=== PATIENT | male | born 1955 | race Caucasian/White ===

== ENCOUNTER 2016-11-06 08:15 | Observation (INO) | payer BC ==
--- NOTE | ~2016-11-06 | HP ---
History And Physical [place] [address] [facility] [place]. [address] NAME: CATHERINE GRAY JR : 51 STATUS : ADM IN PAT#: [id number] AGE: 61 ADM/REG DATE : 11/06/16 MR#: [id number] REPORT SERV DATE: 11/06/16 DICTATED BY: CRYSTAL REICH III DATE: 11/06/16 REPORT STATUS : Draft TRANSCRIBED BY: MODDarling DATE: 11/06/16 DATE OF ADMISSION: 11/06/2016 HISTORY OF PRESENT ILLNESS: Mr. Catherine Gray Jr., is a 61-year-old white male from [place], [place] transferred from [facility] for evaluation of left shoulder pain and an abnormal myocardial perfusion scan. The patient had been in his usual state of health until 2000. At that time, following the of his brother, the patient underwent cardiac catheterization. According to the patient, selective coronary angiography demonstrated insignificant disease. The patient did well until 2004. At that time, the patient presented with paroxysmal supraventricular tachycardia. The patient was treated with diltiazem CD. The patient did well until 1 year prior to this admission. At that time, the patient noted the onset of intermittent left shoulder pain. The patient did well until approximately 1 hour prior to admission to [facility] on 11/04. At that time, the patient had the onset of dull left scapular pain radiating to the left upper extremity (to the level of the wrist). The patient's pain was continuous in character with intermittent exacerbations. The patient denied any associated dyspnea, diaphoresis, nausea, or vomiting. The patient's pain was precipitated and exacerbated by certain movements. The patient stated that his pain was precipitated by ambulation. The patient denied relation to emotional upset, oral intake, and respiration. The patient denied relieving factors. The patient denied trying sublingual nitroglycerin and antacids. The patient has no history of migraine headaches or symptoms suggestive of Raynaud's phenomenon. The patient has noted left shoulder pain at rest. The patient denied being woken from sleep by chest pain. On 11/05, the patient underwent a 2D and Doppler echocardiogram. That study demonstrated grade I left ventricular diastolic dysfunction and aortic sclerosis. Left ventricular systolic function was normal. The estimated global left ventricular ejection fraction was 65%. On 11/05/2016, the patient underwent an intravenous regadenoson Technetium-99m sestamibi scintigram. Myocardial perfusion imaging demonstrated homogeneous distribution of the radioisotope. There was transient ischemic dilation, with a stress to rest ratio of 1.27. The calculated global left ventricular ejection fraction was 74%. The patient was subsequently transferred to [facility] for cardiac catheterization to define coronary anatomy, left ventricular function. The patient complained of occasional paroxysmal nocturnal dyspnea and dependent bilateral pedal edema. The patient has been told that he has a cardiac murmur. The patient denied dyspnea on exertion, orthopnea, trepopnea, platypnea, sacral edema, pedal edema, hip claudication, and lower extremity claudication. The patient has no history of rheumatic fever. The patient's documented coronary artery disease risk factors include family history, obesity, and hyperlipoproteinemia. PAST MEDICAL HISTORY: 1. Obesity. 2. Hyperlipoproteinemia. 3. Esophageal spasm. 4. Gastroesophageal reflux. 5. Obstructive sleep apnea. 6. Fatty liver. History And Physical [address] [address] NAME: KOREYCATHERINEDARA JAMES JR : 51 STATUS : ADM IN PAT#: [id number] AGE: 61 ADM/REG DATE : 11/06/16 MR#: [id number] REPORT SERV DATE: 11/06/16 DICTATED BY: CRYSTAL REICH III DATE: 11/06/16 REPORT STATUS : Draft TRANSCRIBED BY: CIPRIANO DATE: 11/06/16 7. Nephrolithiasis. OPERATIVE PROCEDURES: 1. Status post left inguinal herniorrhaphy. 2. Status post full mouth extraction. ALLERGIES: SHELLFISH. MEDICATIONS: 1. Alprazolam 0.25 mg p.o. daily and 0.5 mg p.o. at bedtime. 2. Aspirin 81 mg p.o. daily. 3. B complex with vitamin C 1 p.o. daily. 4. Coenzyme Q10, 200 mg p.o. daily. 5. Hydrochlorothiazide 25 mg p.o. daily. 6. Diltiazem CD 240 mg p.o. daily. 7. Alpha-lipoic acid 300 mg p.o. daily. 8. Multivitamin with minerals 1 p.o. daily. 9. Fleetwood-3 fatty acid 1200 mg p.o. daily. 10.Rosuvastatin 5 mg p.o. at bedtime. 11.Probiotic 1 p.o. b.i.d. 12.Acetyl L-Carnitine 250 mg p.o. daily. 13.Lortab 5/325 mg 1-2 tablets p.o. q.4-6 hours, p.r.n. pain. FAMILY HISTORY: Positive for myocardial infarction, stroke, diabetes mellitus, arthritis, and depression. Negative for hypertension, seizures, cancer, kidney disease, liver disease, and anemia. SOCIAL HISTORY: The patient discontinued alcohol use approximately 20 years prior to this admission. The patient discontinued cigarette smoking approximately 8 years prior to this admission. The patient denied any other forms of tobacco use. PHYSICAL EXAMINATION: GENERAL: Demonstrated an alert, obese, older white male, in no acute distress. VITAL SIGNS: Demonstrated temperature of 96.7 orally, respiratory rate of 16 breaths per minute, and blood pressure of 141/86 mmHg with a heart rate of 77 beats per minute. SKIN: Warm and dry. NECK: Supple and nontender. There was decreased range of motion. There was no appreciable lymphadenopathy or thyromegaly. There was no jugular venous distention at 90 degrees. CHEST: Examination of the chest demonstrated that the patient's left shoulder and left upper extremity pain was precipitated by palpation of the left scapula. The chest was clear to auscultation. There were no crackles, rhonchi, wheezes, or pleural rubs. There was symmetrical expansion of the chest. There was no use of accessory muscles for respiration. CARDIAC: Cardiac examination demonstrated a nonpalpable apical impulse. There was a regular rhythm and rate without murmur, rub, gallop, or mid systolic click. There were no thrills or heaves. There was no hepatojugular reflux. ABDOMEN: Examination of the abdomen demonstrated that it was obese, soft, and protuberant. There was no appreciable hepatosplenomegaly or masses. Bowel sounds were intact. There History And Physical [address] [address] NAME: EDUAR GRAYDARA JAMES JR : 51 STATUS : ADM IN [facility]#: [id number] AGE: 61 ADM/REG DATE : 11/06/16 MR#: [id number] REPORT SERV DATE: 11/06/16 DICTATED BY: CRYSTAL REICH III DATE: 11/06/16 REPORT STATUS : Draft TRANSCRIBED BY: CIPRIANO DATE: 11/06/16 were no abdominal or femoral bruits. BACK: Examination of the extremities demonstrate they were symmetrical. There was full range of motion without cyanosis, clubbing, or edema. Pulses were 2+ and equal at the radial, femoral, and dorsalis pedis arteries. The right posterior tibial pulse was 1+. The left posterior tibial pulse was 2+. ASSESSMENT: Mr. Catherine Gray , is a 61-year-old white male with three other risk factors for coronary atherosclerotic disease (i.e., family history, obesity, hyperlipoproteinemia), angiographically insignificant coronary artery disease (2000), and a history of paroxysmal supraventricular tachycardia since 2004; who presented with noncardiac left shoulder pain and transient ischemic dilation on an exercise Technetium-99m sestamibi scintigram (11/05/2016). The patient's left shoulder and upper extremity pain is clearly noncardiac in origin. The patient's physical examination suggested a musculoskeletal etiology involving the suprascapular nerve. I have consulted Orthopedic Surgery. The transient ischemic dilation in the absence of diabetes mellitus or known coronary artery disease is generally not indicative of multi-vessel coronary artery disease. However, I note a family history of premature coronary artery disease and multiple other risk factors. Therefore, I plan cardiac catheterization to define coronary anatomy, and left ventricular function, followed by consideration of revascularization. Options, potential risks, and benefits of the procedure were discussed with the patient. The patient accepted these risks and wished to proceed. /CIPRIANO Crystal Reich III, M.D., [place], [facility] / [id number] CC: Crystal Reich III, M.D., [place], [facility] [place] M.D.
--- NOTE | ~2016-11-06 | CN ---
Consultation Report [facility] [address] [place]. [address] NAME: CATHERINE NAIR JR : 51 STATUS : ADM IN PAT#: [id number] AGE: 61 ADM/REG DATE : 11/06/16 MR#: [id number] REPORT SERV DATE: 11/06/16 DICTATED BY: JOSUÉ AMBRIZ DATE: 11/06/16 REPORT STATUS : Draft TRANSCRIBED BY: MODDarling DATE: 11/06/16 DATE OF CONSULTATION: 11/06/2016 CHIEF COMPLAINT: Left shoulder pain. HISTORY OF PRESENT ILLNESS: The patient is a 61-year-old gentleman with left shoulder pain that has been going on for the past couple months, but he said a few days ago it stopped him in his tracks with severe pain. It started in his shoulder blade area, ran down toward his lateral shoulder and forearm. He said has pain with movement. He is having a lot of pain at night. He cannot get comfortable due to the pain in the shoulder. He says he has reported weakness in the shoulder as well. He has not had any previous shoulder pain or problems prior to this couple months. He was admitted to the hospital due to unstable angina and a positive stress test. He said he is afraid that his shoulder pain was coming from his heart, but it appears that this is more musculoskeletal with his location of pain, in description of pain. PAST MEDICAL HISTORY: Hypertension, COPD, reflux, inguinal hernia, possible coronary artery disease. MEDICATIONS: Diltiazem, Crestor, Xanax, aspirin, coenzyme, omega-3, hydrochlorothiazide, multivitamin. ALLERGIES: NO KNOWN DRUG ALLERGIES. SOCIAL HISTORY: He is a past smoker. He is , still working, and they live in [place]. FAMILY HISTORY: Noncontributory. REVIEW OF SYSTEMS: Times 10 negative except for above. PHYSICAL EXAMINATION: GENERAL: Well-developed, well-nourished male, in no acute distress. HEENT: Normocephalic, atraumatic. RESPIRATORY: Nonlabored respirations. Equal chest rise bilaterally. EXTREMITIES: No cyanosis, clubbing, or edema. MUSCULOSKELETAL: He has tenderness to palpation at anterior lateral shoulder at the lateral rotator cuff insertion. He has pain with range of motion. His range of motion of his forward flexion is 160, his external rotation is 50. His passive motion acted as the same. His rotator cuff strength 4/5 strength with supraspinatus testing, 5/5 strength with infraspinatus testing, 5/5 strength to internal rotation. Subscapularis testing is provocative rotator cuff test are positive including the drop arm test. Whipple test is positive. Cross-arm test is positive. C-spine, he has no pain with motion of the C-spine. His Spurling's test is negative. SKIN: No rashes or lesions, right and left upper extremities. Consultation Report [place] [id number] [place]. [address] NAME: CATHERINE NAIR JR : 51 STATUS : ADM IN PAT#: [id number] AGE: 61 ADM/REG DATE : 11/06/16 MR#: [id number] REPORT SERV DATE: 11/06/16 DICTATED BY: JOSUÉ AMBRIZ DATE: 11/06/16 REPORT STATUS : Draft TRANSCRIBED BY: MODDarling DATE: 11/06/16 PSYCH: Appropriate mood and affect. NEURO: Neurovascularly intact in left upper extremity. Inappropriate mood and alert x3. X-RAYS: No x-rays of the shoulder yet. ASSESSMENT: 1. Likely rotator cuff tendinitis. 2. Left shoulder pain. PLAN: I am going to order x-rays of his left shoulder. It is likely rotator cuff tendinitis which can be worked up as an outpatient. No acute intervention needed while in the hospital. I have given him my card today. Will follow up next week as soon as he is discharged from the hospital for further workup of the shoulder pain which I believe is due to his rotator cuff. DARRYL/CIPRIANO Josué Ambriz MD / [id number] CC: Dieudonne Reich III, M.D., [facility], [facility] [place] [facility]
[2016-11-06] MEDS ORDERED: CARDCD240 PO (09:15)
[2016-11-06] MEDS ORDERED: X5 PO (09:16)
[2016-11-06] MEDS ORDERED: CRESTOR5 MG PO (09:16)
[2016-11-06] MEDS ORDERED: X25 PO (09:17)
[2016-11-06] MEDS ORDERED: HALF81 PO (09:17)
[2016-11-06] MEDS ORDERED: CO Q-10200 MG PO (09:18)
[2016-11-06] MEDS ORDERED: SUPER B COMP PO (09:18)
[2016-11-06] MEDS ORDERED: FISH OIL1200 MG PO (09:18)
[2016-11-06] MEDS ORDERED: PROBIOTIC PO (09:19)
[2016-11-06] MEDS ORDERED: ALPHA LIPOIC300 MG PO (09:20)
[2016-11-06] MEDS ORDERED: HYDROCHLOROT25 MG PO (09:20)
[2016-11-06] MEDS ORDERED: MULTIVIT/MIN PO (09:21)
[2016-11-06] MEDS ORDERED: ACETYL PO (09:22)
[2016-11-06] MEDS ORDERED: [UNRECOGNIZED DRUG - OTHER] PO (09:22)
[2016-11-06 10:43] LABS: BASOPHILS 0.4 %; BASOPHILS ABSOLUTE 0.02 10/3/uL (0.0-0.16); EOSINOPHILS 4.1 %; EOSINOPHILS ABSOLUTE 0.23 10/3/uL (0.0-0.53); HEMATOCRIT 46.6 % (40.0-51.0); HEMOGLOBIN 15.9 g/dL (13.6-17.8); IMMATURE GRANULOCYTES 0.2 %; IMMATURE GRANULOCYTES ABSOLUTE 0.01 10/3/uL (0.0-0.11); MEAN CORPUS HGB CONC 34.1 g/dL (32.0-36.0); MEAN CORPUSCULAR HEMOGLOB 30.5 pg (26.0-34.0); MEAN CORPUSCULAR VOLUME 89.3 fL (80-100); MEAN PLATELET VOLUME 10.7 fL (9.2-13.0); MONOCYTES 6.7 %; MONOCYTES ABSOLUTE 0.37 10/3/uL (0.21-1.20); NEUTROPHILS 61.6 %; NEUTROPHILS ABSOLUTE 3.42 10/3/uL (2.02-8.40); PLATELET COUNT 155 10/3/uL (150-400); RBC DISTRIBUTION WIDTH 13.2 % (12.0-16.0); RED CELL COUNT 5.22 10/6/uL (4.7-6.1); WHITE BLOOD CELLS 5.6 10/3/uL (4.5-10.5)
[2016-11-06 10:44] LABS: MANUAL DIFF NO %
[2016-11-06 10:48] LABS: PARTIAL THROMBO TIME 24.7 SEC (22.5-37.2); PROTIME (NOT ORD) 13.1 SEC (12.0-14.5)
[2016-11-06 11:01] LABS: BUN (BLOOD UREA NITROGEN) 13 MG/DL (6-23); CALCIUM, SERUM 8.2 MG/DL (8.5-10.4); CHLORIDE, SERUM 105 MMOL/L (96-112); CO2 (CARBON DIOXIDE) 29 MMOL/L (24-34); GFR AFRICAN AMERICAN 92 ML/MIN (>=60); GFR NON AFRICAN AMERICAN 80 ML/MIN (>=60); GLUCOSE, SERUM 113 MG/DL (60-99); POTASSIUM, SERUM 3.8 MMOL/L (3.5-5.3); SODIUM, SERUM 143 MMOL/L (135-148); TROPONIN I <0.02 NG/ML (<0.05)
[2016-11-07 06:41] LABS: BASOPHILS 0.3 %; BASOPHILS ABSOLUTE 0.02 10/3/uL (0.0-0.16); EOSINOPHILS 3.7 %; EOSINOPHILS ABSOLUTE 0.23 10/3/uL (0.0-0.53); HEMATOCRIT 45.7 % (40.0-51.0); HEMOGLOBIN 15.4 g/dL (13.6-17.8); IMMATURE GRANULOCYTES 0.2 %; IMMATURE GRANULOCYTES ABSOLUTE 0.01 10/3/uL (0.0-0.11); LYMPHOCYTES 27.3 %; LYMPHOCYTES ABSOLUTE 1.69 10/3/uL (0.67-4.30); MEAN CORPUS HGB CONC 33.7 g/dL (32.0-36.0); MEAN CORPUSCULAR HEMOGLOB 30.4 pg (26.0-34.0); MEAN CORPUSCULAR VOLUME 90.3 fL (80-100); MEAN PLATELET VOLUME 11.5 fL (9.2-13.0); MONOCYTES 9.1 %; MONOCYTES ABSOLUTE 0.56 10/3/uL (0.21-1.20); NEUTROPHILS 59.4 %; NEUTROPHILS ABSOLUTE 3.67 10/3/uL (2.02-8.40); PLATELET COUNT 169 10/3/uL (150-400); RBC DISTRIBUTION WIDTH 13.2 % (12.0-16.0); RED CELL COUNT 5.06 10/6/uL (4.7-6.1); WHITE BLOOD CELLS 6.2 10/3/uL (4.5-10.5)
[2016-11-07 06:45] LABS: MANUAL DIFF NO %
[2016-11-07 06:54] LABS: ALBUMIN 3.6 G/DL (3.5-5.0); ALKALINE PHOSPHATASE 86 U/L (45-117); CALCIUM, SERUM 8.5 MG/DL (8.5-10.4); CHLORIDE, SERUM 102 MMOL/L (96-112); CHOL/HDL RATIO(NOT ORDER) 3.2 (0-5); CHOLESTEROL 152 MG/DL (< 200); CO2 (CARBON DIOXIDE) 31 MMOL/L (24-34); CREATININE 0.92 MG/DL (0.70-1.30); GFR AFRICAN AMERICAN 102 ML/MIN (>=60); GFR NON AFRICAN AMERICAN 88 ML/MIN (>=60); GLOBULIN 3.6 G/DL (2.5-4.1); GLUCOSE, SERUM 118 MG/DL (60-99); HDL CHOLESTEROL 48 MG/DL (> 39); LDL CHOLESTEROL 74 MG/DL (< 130); NON-HDL CHOLESTEROL 104 MG/DL (< 160); POTASSIUM, SERUM 3.6 MMOL/L (3.5-5.3); SGOT(AST) 19 U/L (5-40); SGPT(ALT) 33 U/L (5-65); SODIUM, SERUM 142 MMOL/L (135-148); TOTAL BILIRUBIN 0.4 MG/DL (0-1.2); TOTAL PROTEIN 7.2 G/DL (6.0-8.5); TRIGLYCERIDE 152 MG/DL (< 150)
[2016-11-07 06:55] LABS: BUN (BLOOD UREA NITROGEN) 21 MG/DL (6-23)
[2016-11-08 05:16] LABS: HEMATOCRIT 46.5 % (40.0-51.0); HEMOGLOBIN 15.9 g/dL (13.6-17.8); MEAN CORPUS HGB CONC 34.2 g/dL (32.0-36.0); MEAN CORPUSCULAR HEMOGLOB 30.6 pg (26.0-34.0); MEAN CORPUSCULAR VOLUME 89.4 fL (80-100); MEAN PLATELET VOLUME 11.5 fL (9.2-13.0); PLATELET COUNT 169 10/3/uL (150-400); WHITE BLOOD CELLS 5.3 10/3/uL (4.5-10.5)
[2016-11-08 05:21] LABS: MANUAL DIFF YES %
[2016-11-08 05:27] LABS: PROTIME (NOT ORD) 12.8 SEC (12.0-14.5)
[2016-11-08 05:45] LABS: BUN (BLOOD UREA NITROGEN) 17 MG/DL (6-23); CALCIUM, SERUM 8.8 MG/DL (8.5-10.4); CHLORIDE, SERUM 101 MMOL/L (96-112); CHOL/HDL RATIO(NOT ORDER) 3.3 (0-5); CHOLESTEROL 154 MG/DL (< 200); CO2 (CARBON DIOXIDE) 28 MMOL/L (24-34); CREATININE 0.95 MG/DL (0.70-1.30); GFR AFRICAN AMERICAN 98 ML/MIN (>=60); GFR NON AFRICAN AMERICAN 85 ML/MIN (>=60); GLUCOSE, SERUM 124 MG/DL (60-99); HDL CHOLESTEROL 47 MG/DL (> 39); LDL CHOLESTEROL 73 MG/DL (< 130); NON-HDL CHOLESTEROL 107 MG/DL (< 160); POTASSIUM, SERUM 3.4 MMOL/L (3.5-5.3); SODIUM, SERUM 140 MMOL/L (135-148); TRIGLYCERIDE 171 MG/DL (< 150)
[2016-11-08 06:29] LABS: EOSINOPHILS 4 %; EOSINOPHILS ABSOLUTE (CALC) 0.21 10/3/uL (0.0-0.53); LYMPHOCYTES 32 %; MONOCYTES 3 %; MONOCYTES ABSOLUTE (CALC) 0.16 10/3/uL (0.21-1.20); NEUTROPHILS ABSOLUTE (CALC) 3.23 10/3/uL (2.02-8.40); PLATELET ESTIMATE ADQ (ADEQUATE); RBC MORPHOLOGY NORM (NORMAL); SEGMENTED NEUTROPHIL (0) 61 %; TOTAL NUCLEATED CELLS 100
== END 2016-11-08 19:50 | disposition home or self-care (01) ==
LOC: 5NO 08:15
PROVIDERS: Internal Medicine Cardiovascular Disease
DX: I25.119 Atherosclerotic heart disease of native coronary artery with unspecified angina pectoris (principal); E66.9 Obesity, unspecified; E78.5 Hyperlipidemia, unspecified; K21.9 Gastro-esophageal reflux disease without esophagitis; G47.33 Obstructive sleep apnea (adult) (pediatric); J44.9 Chronic obstructive pulmonary disease, unspecified; E78.00 Pure hypercholesterolemia, unspecified; K76.0 Fatty (change of) liver, not elsewhere classified; Z87.442 Personal history of urinary calculi; Z98.890 Other specified postprocedural states; Z79.82 Long term (current) use of aspirin; Z79.899 Other long term (current) drug therapy; Z82.49 Family history of ischemic heart disease and other diseases of the circulatory system; Z82.3 Family history of stroke; Z83.3 Family history of diabetes mellitus; Z82.61 Family history of arthritis; Z87.891 Personal history of nicotine dependence
CPT/HCPCS: 71010; 72040; 73030-LT; 80048; 80053; 80061; 83735; 84484; 85025; 85610; 85730; 93005; 93458; A9270-GY; C1760; C1769; C1894; G0378; J2250; J3010; Q9967